=== PATIENT | male | born 1940 | race African-American/Black ===

== ENCOUNTER → 2017-03-05 | Day surgery (SDC) | payer MEDICARE, BC ==
[~2017-03-05] VITALS: Ht 177.8 cm; Wt 82.0 kg
[~2017-03-05] MED LIST: ACETAMINOPHEN/HYDROcodone 325 MG/5 MG TAB ONE; ALLO300T2 PO; AMPICILLIN-SULBACTAM INJ 3 GM VIAL ONE; ASPI-146 PO; ASPI1TAB69 PO; ATOR1TAB18 PO; CENTTAB PO; LACTATED RINGER'S 1000 ML INJ 1,000 ML ONE; LIDOCAINE 1%/EPINEPHrine 1:100,000 SOLN 30 ML VIAL ONE; METO25TA6 PO; MUPIROCIN 2% OINT 22 GM TUBE ONE; SELE1TAB PO; SODIUM CHLORIDE 0.9% INJ 100 ML ONE; TERA10CA3 PO; ZINC25TA PO; ZYRT10CA PO
[2017-03-05 06:55] VITALS: BP 158/66; PULSE 58; RESP 16; TEMP 97.5; O2SAT 98
[2017-03-05 10:15] VITALS: BP 157/90; PULSE 64; RESP 16; O2SAT 97
--- NOTE | 2017-03-11 08:39 | MP ---
cc: JIMBO RAMIREZ M.D. DATE OF SURGERY: 03/05/[address] Jimbo Ramirez PREOPERATIVE DIAGNOSIS Benign lesion of left auricular helix. POSTOPERATIVE DIAGNOSIS Benign lesion of left auricular helix. OPERATION PERFORMED 1. Excision benign lesion apex of left auricular helix, CPT code 32432. 2. Complex repair auricular defect, CPT code 20726. INDICATIONS The indications are documented in the history and physical. DESCRIPTION OF OPERATION The patient was taken to OR #2 and placed in the supine position. The right ear was then prepped with an alcohol pad and the area of the lesion was injected with 3 mL of 1% Xylocaine with epinephrine 1:100,000. He was then prepped and draped for surgery. There was an irregular cartilaginous lesion extending approximately 2.5 cm along the apex of the helix of the left ear. This was excised in toto with a 15 blade scalpel down through the cartilage. This was passed off the field as specimen. There was no evidence of malignancy. Repair of the defect was then begun by undermining the skin of the ear in all directions approximately 1.5 cm. An additional area of cartilage needed to be removed to allow for a smooth closure of the defect. It was then closed in layers with 4-0 Vicryl subcutaneous and the skin itself closed with a running suture of 5-0 fast-absorbing plain gut. The wound was then dressed with mupirocin ointment and the procedure was terminated. The patient was reversed from anesthesia and taken to Recovery in good condition. There were no complications. Blood loss was 20 mL. MD RIGO Higgins/LUDWIG /8:15 AM /8:37 AM
== END | disposition home or self-care (01) ==
LOC: PHSDC 06:35
PROVIDERS: ATTEND Otolaryngology
DX: Q18.1 Preauricular sinus and cyst (principal); L91.0 Hypertrophic scar; I10 Essential (primary) hypertension
CPT/HCPCS: 11443; 13151; 88305; J0295; J7120